=== PATIENT | female | born 1975 | race Caucasian/White ===

== ENCOUNTER 2016-10-03 19:14 | Emergency (ER) | payer OTHER ==
[~2016-10-03] VITALS: Ht 157.5 cm; Wt 127.3 kg
[~2016-10-03 19:14] MED LIST: ALBU8.5H2 INHALATION; BENZ-12 PO; LORA-303 PO; TAM75UDCAP PO
[2016-10-03 19:25] VITALS: BP 152/89; PULSE 72; RESP 16; O2SAT 100
[2016-10-03 20:32] VITALS: BP 136/92; PULSE 74; RESP 20; O2SAT 100
--- NOTE | 2016-10-03 20:34 | DRSVH ---
PROCEDURE: X-RAY RIGHT KNEE, THREE VIEWS ([id number]) INDICATIONS: right knee pain TECHNIQUE: 3 views of the knee were acquired. COMPARISON: None. FINDINGS: Bones: No fractures or dislocations. No suspicious bony lesions. Soft tissues: No joint effusion. No suspicious soft tissue calcifications. IMPRESSION: No acute radiographic findings. If pain persists, repeat study in 5-7 days is recommende d to exclude occult fracture. Dictated by: Jasmyn Camara M.D. on 10/03/2016 at 20:32 Approved by: Jasmyn Camara M.D. on 10/03/2016 at 20:33
--- NOTE | 2016-10-03 21:01 | ED.REPORT ---
HPI-Extremity Problem Lower Date of Service Oct 03, 2016 ED Provider: Cheli Munoz MD This is a 41 year old female presenting to the emergency department complaining of R knee pain that began 3 hours ago. Pt was walking down the stairs when she heard her R knee pop, followed by a fall, landing onto the R leg. Reports inability to move the R leg due to pain, inability to bear weight, and increased swelling. Exacerbated by twisting motions. Denies numbness or tingling in extremities or any other injuries at this time. Nursing Notes Stated Complaint: FELL DOWN STAIRS/KNEE PAIN Chief Complaint: Extremity Trauma Nursing Notes Reviewed: Yes Allergies: Coded Allergies: No Known Allergies (Verified Allergy, Unknown, 10/03/16) Scheduled Oseltamivir Phosphate (Tamiflu) 75 Mg Capsule 75 MG PO BID Scheduled PRN Albuterol HFA (Proair HFA) 8.5 Gm Hfa.aer.ad 2 PUFFS INHALATION Q4H PRN PRN For Wheezing Benzonatate (Tessalon Perle) 100 Mg Capsule 100 MG PO TID PRN PRN For Cough Lorazepam (Ativan) 1 Mg Tablet 1 MG PO HS PRN PRN For Insomnia General Time Seen by MD: 21:00 Chief Complaint Knee injury right Hx Obtained From: Patient Arrived By: Walk-in Onset Occurred: 1 - 4 hours ago Symptom Duration: Since onset Severity: Current: Moderate Pertinent Negative: Pt denies other symptoms Recent Healthcare: No recent doctor visit, No recent hospitalization Similar Sx Previous: No Past Medical History Past Medical History Obesity Fallen arches Past Surgical History Bladder mesh surgery Family History Sister and father both have blood clotting disorders with her sister having a known blood clotting disease Smoking History Unknown if Ever Smoker Social History Other Social History: , Local resident Ambulatory Status Independent Review of Systems Constitutional: Denies: Chills, Fever Musculoskeletal: Reports: Joint pain, Denies: Extremity pain, Extremity swelling, Neck pain Neurologic: Denies: Headache Complete sys rev & neg: except as marked. Physical Exam Initial Vital Signs Vital Signs (First) Date Time Temp Pulse Resp B/P Pulse Ox O2 Delivery O2 Flow Rate FiO2 10/03/16 19:25 36.4 72 16 152/89 100 Room Air Initial VS: Reviewed General/Constitutional: Well-developed, Well-nourished Head / Eyes: Atraumatic, Normocephalic, PERRL ENT: Mucous membranes moist, Conjunctiva normal, No scleral icterus Neck: Supple, Non-tender, Full range of motion Respiratory: Breath sounds normal, Clear to auscultation, No respiratory distress Cardiovascular: Regular rate & rhythm, Heart sounds normal, Intact distal pulses Abdomen / GI: Soft, Non-tender, No guarding, No rebound, No distention Upper Extremities: Vascular intact, Neuro intact, No swelling, No tenderness Skin: Warm, Dry, No cyanosis Neurologic: Alert, Oriented, Nonfocal Psychiatric: Mood/affect normal, Behavior normal, Normal thought content Lower Extremity / Pelvis / MS: Neurologic intact, Vascular intact Right Knee: Positive: ROM painful, Swelling present... (Mild), Tenderness present... (Mild) Ankle / Foot: Atraumatic, Inspection NL, Full range of motion, No swelling, No erythema, Non-tender, No deformity, Neurologic intact, Vascular intact, No edema 2+ DP and PT pulses Interpretation & Diagnostics Interpretation & Diagnostics: R KNEE X-RAY IMPRESSION: No acute radiographic findings. If pain persists, repeat study in 5-7 days is recommended to exclude occult fracture. Dictated by: Jasmyn Camara M.D. on 10/03/2016 at 20:32 Approved by: Jasmyn Camara M.D. on 10/03/2016 at 20:33 Re-Eval/Medical Decision Med Decision/Clinical Course 41-year-old female with no past medical history aside from morbid obesity here with right knee pain. Differential diagnosis includes but is not limited to fracture versus dislocation versus contusion versus internal derangement. Patient's exam is unremarkable, an x-ray is negative. She was given a knee immobilizer and crutches for comfort, along with [place] to go home with. She was advised to follow up with her primary care physician for further imaging if needed. She has been given very strict return precautions. Counseled Regarding: Diagnosis, Lab results, Need for follow-up, When/why to return to ED Discharge & Departure Impression: Primary Impression: Knee contusion Encounter type: initial encounter Laterality: right Qualified Code: S80.01XA - Contusion of right knee, initial encounter Disposition: Home Discharge Condition All VS Reviewed: Yes Condition: Stable Patient Instructions: Crutch Instructions (ED) Additional Instructions: Follow up with your primary care provider for further evaluation. Rest and elevate your leg, take [place] as prescribed for pain. Return to the emergency department for any new or worsening symptoms. Do not drive, consume alcohol, or consume acetaminophen while taking the prescribed narcotic medication. Referrals: Mckayla Warner MD (PCP) Scribe Attestation Portions of this note were transcribed by Shekhar Vasquez. I, Dr. Munoz personally performed the history, physical exam and medical decision-making; I reviewed and confirmed the accuracy of the information in the transcribed note. Signed by: genna Borrero. 10/03/2016, 23:00. Cheli Munoz MD Oct 03, 2016 21:01 SHEKHAR VASQUEZ Oct 03, 2016 21:04
[2016-10-03] MEDS ORDERED: _HYDROcodone/APAP 5-325 mg Tablet PO PRN (21:15)
[2016-10-03 21:52] VITALS: BP 99/66; PULSE 82; RESP 18; O2SAT 97
== END 2016-10-03 21:57 | disposition home or self-care (01) ==
LOC: SED 19:14
DX: S80.01XA Contusion of right knee, initial encounter (principal); W10.9XXA Fall (on) (from) unspecified stairs and steps, initial encounter; Y93.01 Activity, walking, marching and hiking; Y92.018 Other place in single-family (private) house as the place of occurrence of the external cause; Y99.8 Other external cause status